=== PATIENT | female | born 1965 | race Caucasian/White ===

== ENCOUNTER 2017-07-08 17:32 | Inpatient (IN) ==
[2017-07-08] MEDS ORDERED: ALBUTEROL/IPRATROPIUM 3 ML NEB RESP TX STA (18:09)
[2017-07-08] MEDS ORDERED: methylPREDNISolone SOD SUC 125 MG/2 ML VIAL IV STA (18:10)
[2017-07-08 18:20] LABS: VBG Base Excess -5.2 MEQ/L (0-4); VBG HCO3 20.5 MEQ/L (24-28); VBG Oxygen Saturation 76.8 %; VBG PCO2 40.6 MMHG (41-51); VBG PH 7.321; VBG PO2 42.1 MMHG (17-40)
[2017-07-08 18:23] LABS: Basophils % 0.2 % (0.0-0.8); Hematocrit 35.6 VOL% (35.7-47.0); Immature Granulocytes % 0.4 %; Immature Granulocytes Absolute 0.04 #; Lymphocytes # 1.8 10*3/uL (1.4-4.0); Mean Corpuscular HGB Conc 33.7 GM/DL (32-36); Mean Corpuscular Hemoglobin 30 PG (27-34); Mean Corpuscular Volume 89.7 FL (87-102); Mean Platelet Volume 9.7 FL (9.6-12.0); Monocytes # 0.2 10*3/uL (0.11-0.8); Monocytes % 2.1 % (1.7-12.7); Neutrophils # 7.2 10*3/uL (1.4-7.4); Neutrophils % 78.3 % (38.7-73.9); Platelet Count 243 T/CUMM (130-400); Red Blood Count 3.97 MC/CUMM (3.8-5.5); Red Cell Distribution Width 12.8 % (9.3-17.3); White Blood Count 9.2 T/CUMM (4-12)
[2017-07-08 18:33] LABS: Alanine Aminotransferase 33 U/L (13-56); Albumin 3.2 G/DL (3.4-5.0); Alkaline Phosphatase 41 U/L (45-117); Aspartate Amino Transferase 29 U/L (0-37); Blood Urea Nitrogen 21 MG/DL (7-18); Calcium 8.1 MG/DL (8.5-10.1); Glucose 94 MG/DL (74-106); Osmolality,Calculated 268.4 MOS/KG (273-304); Potassium 3.5 MMOL/L (3.5-5.1); Sodium 133 MMOL/L (136-145); Total Protein 7.2 G/DL (6.4-8.3); Troponin I Only < 0.015 NG/ML (0.00-0.045)
[2017-07-08] MEDS ORDERED: methylPREDNISolone SOD SUC 125 MG/2 ML VIAL ONE (18:33)
[2017-07-08] MEDS ORDERED: FUROSEMIDE 40 MG/4 ML VIAL IV STA (18:53)
[2017-07-08] MEDS ORDERED: SODIUM CHLORIDE 0.9% 2,250 ML IV ONE (19:10)
[2017-07-08] MEDS ORDERED: CEFEPIME 2,000 MG in SODIUM CHLORIDE 0.9% 100 ML IV STA (19:12)
[2017-07-08] MEDS ORDERED: VANCOMYCIN INJ 1,000 MG in SODIUM CHLORIDE 0.9% 250 ML IV STA (19:12)
[2017-07-08] MEDS ORDERED: FUROSEMIDE 40 MG/4 ML VIAL ONE (19:41)
[2017-07-08 20:26] LABS: Apearance,Urine Slightly Hazy (Clear); Bilirubin,Urine Negative (Negative); Blood, Urine Small mg/dL (Negative); Glucose,Urine (UA) Negative (Negative); Ketones,Urine Negative (Negative); Mucus,Urine Occasional /LPF (Occasional); Nitrite,Urine Negative (Negative); Protein,Urine 30 MG/DL; Urine Color Yellow (Yellow); Urine Specific Gravity 1.018 (1.001-1.035); Urine Urobilinogen < 2.0 EU/DL (0.2-1.0)
[2017-07-08] MEDS ORDERED: NON-FORMULARY MEDICATION (Albuterol Sulfate [Ventolin Hfa] 2 PUFF) INH PRN (20:45)
[2017-07-08] MEDS ORDERED: LEVOFLOXACIN INJ 750 MG in PREMIX 1 EACH IV SCH (21:30)
[2017-07-08] MEDS: OSELTAMIVIR 75 MG CAPSULE PO SCH (21:40)
[2017-07-08] MEDS ORDERED: cefTRIAXone 2,000 MG in SYRINGE 1 EACH IV SCH (23:00)
[2017-07-09] MEDS: ALBUTEROL 2.5 MG/3 ML NEB RESP TX PRN ×2 (00:20→08:04)
[2017-07-09] MEDS: OSELTAMIVIR 75 MG CAPSULE PO SCH ×2 (08:07→21:17)
[2017-07-09] MEDS ORDERED: VANCOMYCIN INJ 1,000 MG in SODIUM CHLORIDE 0.9% 250 ML IV SCH (11:00)
[2017-07-09] MEDS: ALBUTEROL 2.5 MG/3 ML NEB RESP TX SCH ×4 (11:18→23:51)
[2017-07-09] MEDS: PIPERACILLIN/TAZOBACTAM 3,375 MG in SODIUM CHLORIDE 0.9% 100 ML IV SCH ×2 (12:41→21:17)
[2017-07-09] MEDS: BREO ELLIPTA INH SCH (14:58)
[2017-07-09] MEDS ORDERED: FUROSEMIDE 40 MG/4 ML VIAL IV ONE (16:36)
[2017-07-09] MEDS: BUDESONIDE 0.5 MG/2 ML NEB RESP TX SCH (19:18)
[2017-07-10] MEDS: ALBUTEROL 2.5 MG/3 ML NEB RESP TX SCH ×3 (02:38→11:33)
[2017-07-10] MEDS: PIPERACILLIN/TAZOBACTAM 3,375 MG in SODIUM CHLORIDE 0.9% 100 ML IV SCH ×3 (04:18→20:04)
[2017-07-10 04:44] LABS: Basophils # 0.1 10*3/uL (0.0-0.2); Basophils % 0.7 % (0.0-0.8); Eosinophils % 0.1 % (0.00-10.9); Hematocrit 31.1 VOL% (35.7-47.0); Hemoglobin 10.5 GM/DL (12.0-16.0); Immature Granulocytes % 1.2 %; Immature Granulocytes Absolute 0.17 #; Lymphocytes # 1.7 10*3/uL (1.4-4.0); Lymphocytes % 12.2 % (21.3-54.2); Mean Corpuscular HGB Conc 33.8 GM/DL (32-36); Mean Corpuscular Hemoglobin 30 PG (27-34); Mean Corpuscular Volume 90.1 FL (87-102); Mean Platelet Volume 9.8 FL (9.6-12.0); Monocytes # 0.4 10*3/uL (0.11-0.8); Monocytes % 3.1 % (1.7-12.7); Neutrophils # 11.8 10*3/uL (1.4-7.4); Neutrophils % 82.7 % (38.7-73.9); Platelet Count 217 T/CUMM (130-400); Red Blood Count 3.45 MC/CUMM (3.8-5.5); Red Cell Distribution Width 13.1 % (9.3-17.3); White Blood Count 14.3 T/CUMM (4-12)
[2017-07-10 04:52] LABS: Calcium 8.4 MG/DL (8.5-10.1); Magnesium 2.4 MG/DL (1.8-2.4); Osmolality,Calculated 278.7 MOS/KG (273-304); Potassium 3.1 MMOL/L (3.5-5.1)
[2017-07-10 05:16] LABS: Hypochromasia 1+; Microcytosis Slight; Platelet Estimate Adequate
[2017-07-10] MEDS: BUDESONIDE 0.5 MG/2 ML NEB RESP TX SCH ×2 (07:46→19:56)
[2017-07-10] MEDS ORDERED: POTASSIUM CHLORIDE 20 MEQ TABLET PO ONE ×2 (08:21→12:15)
[2017-07-10] MEDS: VANCOMYCIN INJ 1,000 MG in SODIUM CHLORIDE 0.9% 250 ML IV SCH ×2 (09:02→20:39)
[2017-07-10] MEDS: OSELTAMIVIR 75 MG CAPSULE PO SCH ×2 (09:19→20:02)
[2017-07-10] MEDS: BREO ELLIPTA INH SCH (09:21)
[2017-07-10] MEDS ORDERED: ALBUTEROL 1.25 MG/3 ML NEB RESP TX PRN (12:08)
[2017-07-10] MEDS: methylPREDNISolone SOD SUC 40 MG/1 ML VIAL IV SCH ×2 (12:12→20:02)
[2017-07-10 12:22] LABS: ABG Base Excess 1.1 MMOL/L (-2.5-2.5); ABG HCO3 25.3 MMOL/L (20-26); ABG Oxygen Saturation 88.1 % (95-100); ABG PCO2 38.8 MM HG (35-48); ABG PH 7.425 (7.35-7.45); ABG PO2 54.3 MM HG (80-95); ABG TCO2 23.1 MMOL/L (23-27)
[2017-07-10] MEDS: ALBUTEROL/IPRATROPIUM 3 ML NEB RESP TX SCH ×2 (14:06→19:56)
[2017-07-11] MEDS: ALBUTEROL/IPRATROPIUM 3 ML NEB RESP TX SCH ×4 (00:09→20:34)
[2017-07-11] MEDS: PIPERACILLIN/TAZOBACTAM 3,375 MG in SODIUM CHLORIDE 0.9% 100 ML IV SCH ×3 (05:25→20:57)
[2017-07-11] MEDS: methylPREDNISolone SOD SUC 40 MG/1 ML VIAL IV SCH ×3 (05:26→20:54)
[2017-07-11 06:00] LABS: Basophils # 0.1 10*3/uL (0.0-0.2); Basophils % 0.5 % (0.0-0.8); Hematocrit 30.1 VOL% (35.7-47.0); Hemoglobin 10.1 GM/DL (12.0-16.0); Immature Granulocytes % 5.1 %; Immature Granulocytes Absolute 0.84 #; Lymphocytes # 1.2 10*3/uL (1.4-4.0); Lymphocytes % 7.3 % (21.3-54.2); Mean Corpuscular HGB Conc 33.6 GM/DL (32-36); Mean Corpuscular Hemoglobin 30 PG (27-34); Mean Corpuscular Volume 89.6 FL (87-102); Mean Platelet Volume 9.6 FL (9.6-12.0); Monocytes # 0.5 10*3/uL (0.11-0.8); Monocytes % 2.8 % (1.7-12.7); Neutrophils # 13.9 10*3/uL (1.4-7.4); Neutrophils % 84.3 % (38.7-73.9); Platelet Count 247 T/CUMM (130-400); Red Blood Count 3.36 MC/CUMM (3.8-5.5); Red Cell Distribution Width 13.2 % (9.3-17.3); White Blood Count 16.5 T/CUMM (4-12)
[2017-07-11 06:33] LABS: Band Neutrophils 1 % (0-10); Lymphocytes 2 % (20-55); Metamyelocytes 1 %; Segmented Neutrophils 92 % (50-85); Total Cells Counted 100
[2017-07-11 06:36] LABS: Albumin 2.1 G/DL (3.4-5.0); Bilirubin,Total 0.6 MG/DL (0.2-1.0); Calcium 8.2 MG/DL (8.5-10.1); Osmolality,Calculated 280.5 MOS/KG (273-304); Platelet Estimate Adequate; Potassium 3.8 MMOL/L (3.5-5.1); Total Protein 6.3 G/DL (6.4-8.3)
[2017-07-11 06:37] LABS: Hypochromasia Slight
[2017-07-11] MEDS: BUDESONIDE 0.5 MG/2 ML NEB RESP TX SCH ×2 (07:40→20:34)
[2017-07-11] MEDS: OSELTAMIVIR 75 MG CAPSULE PO SCH ×2 (10:29→20:54)
[2017-07-11] MEDS: BREO ELLIPTA INH SCH (10:29)
[2017-07-11] MEDS: VANCOMYCIN INJ 1,000 MG in SODIUM CHLORIDE 0.9% 250 ML IV SCH (10:30)
[2017-07-12] MEDS: ALBUTEROL/IPRATROPIUM 3 ML NEB RESP TX SCH ×4 (00:06→19:05)
[2017-07-12] MEDS: VANCOMYCIN INJ 1,000 MG in SODIUM CHLORIDE 0.9% 250 ML IV SCH ×3 (01:01→22:30)
[2017-07-12] MEDS: methylPREDNISolone SOD SUC 40 MG/1 ML VIAL IV SCH ×3 (04:08→21:54)
[2017-07-12] MEDS: PIPERACILLIN/TAZOBACTAM 3,375 MG in SODIUM CHLORIDE 0.9% 100 ML IV SCH ×3 (04:09→20:26)
[2017-07-12] MEDS: BUDESONIDE 0.5 MG/2 ML NEB RESP TX SCH ×2 (07:19→19:05)
[2017-07-12] MEDS: BREO ELLIPTA INH SCH (10:01)
[2017-07-12] MEDS: OSELTAMIVIR 75 MG CAPSULE PO SCH ×2 (10:01→20:25)
[2017-07-12] MEDS: CHOLECALCIFEROL 1,000 UNIT TABLET PO SCH (10:07)
[2017-07-12 15:35] LABS: Q Fever Phase II IgM <1:16 (<1:16)
[2017-07-13] MEDS: ALBUTEROL/IPRATROPIUM 3 ML NEB RESP TX SCH ×4 (00:42→19:14)
[2017-07-13] MEDS: PIPERACILLIN/TAZOBACTAM 3,375 MG in SODIUM CHLORIDE 0.9% 100 ML IV SCH ×3 (04:33→20:53)
[2017-07-13] MEDS: methylPREDNISolone SOD SUC 40 MG/1 ML VIAL IV SCH (05:19)
[2017-07-13 07:05] LABS: Basophils # 0.1 10*3/uL (0.0-0.2); Basophils % 0.7 % (0.0-0.8); Hematocrit 31.5 VOL% (35.7-47.0); Hemoglobin 10.4 GM/DL (12.0-16.0); Immature Granulocytes % 21.8 %; Immature Granulocytes Absolute 3.55 #; Lymphocytes # 1.5 10*3/uL (1.4-4.0); Lymphocytes % 9.2 % (21.3-54.2); Mean Corpuscular Hemoglobin 30 PG (27-34); Mean Corpuscular Volume 89.5 FL (87-102); Mean Platelet Volume 9.8 FL (9.6-12.0); Monocytes # 1.3 10*3/uL (0.11-0.8); Monocytes % 8.2 % (1.7-12.7); NRBC # 0.03 10*3/uL; Neutrophils # 9.8 10*3/uL (1.4-7.4); Neutrophils % 60.1 % (38.7-73.9); Platelet Count 295 T/CUMM (130-400); Red Blood Count 3.52 MC/CUMM (3.8-5.5); Red Cell Distribution Width 13.4 % (9.3-17.3); White Blood Count 16.3 T/CUMM (4-12)
[2017-07-13] MEDS: BUDESONIDE 0.5 MG/2 ML NEB RESP TX SCH ×2 (07:19→19:17)
[2017-07-13 07:36] LABS: Band Neutrophils 1 % (0-10); Calcium 7.9 MG/DL (8.5-10.1); Lymphocytes 4 % (20-55); Metamyelocytes 5 %; Osmolality,Calculated 285.1 MOS/KG (273-304); Potassium 3.5 MMOL/L (3.5-5.1); Promyelocytes 2 %; Segmented Neutrophils 82 % (50-85); Total Cells Counted 100
[2017-07-13 07:37] LABS: Hypochromasia 1+; Microcytosis Slight; Platelet Estimate Normal
[2017-07-13] MEDS: BREO ELLIPTA INH SCH (09:24)
[2017-07-13] MEDS: CHOLECALCIFEROL 1,000 UNIT TABLET PO SCH (09:24)
[2017-07-13] MEDS: OSELTAMIVIR 75 MG CAPSULE PO SCH (09:24)
[2017-07-13] MEDS: VANCOMYCIN INJ 1,000 MG in SODIUM CHLORIDE 0.9% 250 ML IV SCH (10:26)
[2017-07-13] MEDS ORDERED: methylPREDNISolone SOD SUC 40 MG/1 ML VIAL IV SCH (21:00)
[2017-07-14] MEDS: ALBUTEROL/IPRATROPIUM 3 ML NEB RESP TX SCH ×4 (01:31→20:04)
[2017-07-14 02:42] LABS: Basophils # 0.1 10*3/uL (0.0-0.2); Basophils % 0.4 % (0.0-0.8); Hematocrit 30.8 VOL% (35.7-47.0); Hemoglobin 10.2 GM/DL (12.0-16.0); Immature Granulocytes % 20.6 %; Immature Granulocytes Absolute 3.69 #; Mean Corpuscular HGB Conc 33.1 GM/DL (32-36); Mean Corpuscular Hemoglobin 30 PG (27-34); Mean Corpuscular Volume 89.3 FL (87-102); Mean Platelet Volume 9.3 FL (9.6-12.0); Monocytes # 1.2 10*3/uL (0.11-0.8); Monocytes % 6.8 % (1.7-12.7); NRBC # 0.05 10*3/uL; Neutrophils # 10.9 10*3/uL (1.4-7.4); Neutrophils % 61.2 % (38.7-73.9); Platelet Count 339 T/CUMM (130-400); Red Blood Count 3.45 MC/CUMM (3.8-5.5); Red Cell Distribution Width 13.3 % (9.3-17.3); White Blood Count 17.9 T/CUMM (4-12)
[2017-07-14 03:10] LABS: Calcium 8.1 MG/DL (8.5-10.1); Osmolality,Calculated 282.3 MOS/KG (273-304); Potassium 3.4 MMOL/L (3.5-5.1)
[2017-07-14] MEDS: PIPERACILLIN/TAZOBACTAM 3,375 MG in SODIUM CHLORIDE 0.9% 100 ML IV SCH ×3 (04:33→21:11)
[2017-07-14 06:00] LABS: Band Neutrophils 2 % (0-10); Hypochromasia 2+; Lymphocytes 13 % (20-55); Metamyelocytes 5 %; Nucleated Red Blood Cells 1 (0-5); Platelet Estimate Normal; Segmented Neutrophils 72 % (50-85); Total Cells Counted 100
[2017-07-14] MEDS: BUDESONIDE 0.5 MG/2 ML NEB RESP TX SCH ×2 (07:08→20:04)
[2017-07-14] MEDS: BREO ELLIPTA INH SCH (09:12)
[2017-07-14] MEDS: CHOLECALCIFEROL 1,000 UNIT TABLET PO SCH (09:12)
[2017-07-14] MEDS: methylPREDNISolone SOD SUC 40 MG/1 ML VIAL IV SCH (21:09)
[2017-07-15] MEDS: ALBUTEROL/IPRATROPIUM 3 ML NEB RESP TX SCH ×4 (01:49→19:21)
[2017-07-15] MEDS: PIPERACILLIN/TAZOBACTAM 3,375 MG in SODIUM CHLORIDE 0.9% 100 ML IV SCH ×3 (04:41→20:50)
[2017-07-15 05:44] LABS: Basophils # 0.1 10*3/uL (0.0-0.2); Basophils % 0.4 % (0.0-0.8); Eosinophils % 0.1 % (0.00-10.9); Hematocrit 31.1 VOL% (35.7-47.0); Hemoglobin 10.4 GM/DL (12.0-16.0); Immature Granulocytes % 18.6 %; Immature Granulocytes Absolute 3.05 #; Lymphocytes # 1.9 10*3/uL (1.4-4.0); Lymphocytes % 11.6 % (21.3-54.2); Mean Corpuscular HGB Conc 33.4 GM/DL (32-36); Mean Corpuscular Hemoglobin 30 PG (27-34); Mean Corpuscular Volume 90.1 FL (87-102); Mean Platelet Volume 9.5 FL (9.6-12.0); Monocytes # 0.6 10*3/uL (0.11-0.8); Monocytes % 3.8 % (1.7-12.7); NRBC # 0.02 10*3/uL; Neutrophils # 10.7 10*3/uL (1.4-7.4); Neutrophils % 65.5 % (38.7-73.9); Platelet Count 372 T/CUMM (130-400); Red Blood Count 3.45 MC/CUMM (3.8-5.5); Red Cell Distribution Width 13.5 % (9.3-17.3); White Blood Count 16.4 T/CUMM (4-12)
[2017-07-15 06:14] LABS: Calcium 7.6 MG/DL (8.5-10.1); Osmolality,Calculated 280.4 MOS/KG (273-304); Potassium 3.6 MMOL/L (3.5-5.1)
[2017-07-15 06:41] LABS: Band Neutrophils 6 % (0-10); Lymphocytes 6 % (20-55); Myelocytes 4 %; Segmented Neutrophils 83 % (50-85); Total Cells Counted 100
[2017-07-15 06:43] LABS: Hypochromasia 1+; Platelet Estimate Normal; Polychromasia Few
[2017-07-15] MEDS: BUDESONIDE 0.5 MG/2 ML NEB RESP TX SCH ×2 (07:10→19:21)
[2017-07-15] MEDS: CHOLECALCIFEROL 1,000 UNIT TABLET PO SCH (09:17)
[2017-07-15] MEDS: BREO ELLIPTA INH SCH (09:18)
[2017-07-15] MEDS: methylPREDNISolone SOD SUC 40 MG/1 ML VIAL IV SCH (20:48)
[2017-07-16] MEDS: ALBUTEROL/IPRATROPIUM 3 ML NEB RESP TX SCH ×4 (00:10→20:27)
[2017-07-16] MEDS: PIPERACILLIN/TAZOBACTAM 3,375 MG in SODIUM CHLORIDE 0.9% 100 ML IV SCH ×3 (04:43→20:56)
[2017-07-16 06:01] LABS: Basophils % 0.2 % (0.0-0.8); Hematocrit 30.1 VOL% (35.7-47.0); Immature Granulocytes Absolute 1.92 #; Lymphocytes # 1.6 10*3/uL (1.4-4.0); Lymphocytes % 9.8 % (21.3-54.2); Mean Corpuscular HGB Conc 33.2 GM/DL (32-36); Mean Corpuscular Hemoglobin 30 PG (27-34); Mean Corpuscular Volume 90.1 FL (87-102); Mean Platelet Volume 9.4 FL (9.6-12.0); Monocytes # 0.4 10*3/uL (0.11-0.8); Monocytes % 2.6 % (1.7-12.7); Neutrophils # 12.1 10*3/uL (1.4-7.4); Neutrophils % 75.4 % (38.7-73.9); Platelet Count 404 T/CUMM (130-400); Red Blood Count 3.34 MC/CUMM (3.8-5.5); Red Cell Distribution Width 13.9 % (9.3-17.3); White Blood Count 16.1 T/CUMM (4-12)
[2017-07-16 06:37] LABS: Osmolality,Calculated 283.3 MOS/KG (273-304); Potassium 3.6 MMOL/L (3.5-5.1)
[2017-07-16 06:41] LABS: Band Neutrophils 5 % (0-10); Lymphocytes 10 % (20-55); Metamyelocytes 2 %; Myelocytes 1 %; Platelet Estimate Increased; Segmented Neutrophils 80 % (50-85); Total Cells Counted 100
[2017-07-16 06:42] LABS: Polychromasia Few
[2017-07-16] MEDS: BUDESONIDE 0.5 MG/2 ML NEB RESP TX SCH ×2 (07:24→20:27)
[2017-07-16] MEDS: CHOLECALCIFEROL 1,000 UNIT TABLET PO SCH (08:47)
[2017-07-16] MEDS: BREO ELLIPTA INH SCH (08:47)
[2017-07-16] MEDS: methylPREDNISolone SOD SUC 40 MG/1 ML VIAL IV SCH (20:54)
[2017-07-17] MEDS: ALBUTEROL/IPRATROPIUM 3 ML NEB RESP TX SCH ×2 (00:57→06:52)
[2017-07-17] MEDS: PIPERACILLIN/TAZOBACTAM 3,375 MG in SODIUM CHLORIDE 0.9% 100 ML IV SCH (04:51)
[2017-07-17 06:21] LABS: Basophils % 0.2 % (0.0-0.8); Eosinophils % 0.1 % (0.00-10.9); Hematocrit 32.8 VOL% (35.7-47.0); Hemoglobin 10.5 GM/DL (12.0-16.0); Immature Granulocytes % 6.9 %; Immature Granulocytes Absolute 1.01 #; Lymphocytes # 1.6 10*3/uL (1.4-4.0); Lymphocytes % 10.7 % (21.3-54.2); Mean Corpuscular Hemoglobin 30 PG (27-34); Mean Corpuscular Volume 92.1 FL (87-102); Mean Platelet Volume 9.2 FL (9.6-12.0); Monocytes # 0.3 10*3/uL (0.11-0.8); Monocytes % 2.1 % (1.7-12.7); Neutrophils # 11.8 10*3/uL (1.4-7.4); Platelet Count 446 T/CUMM (130-400); Red Blood Count 3.56 MC/CUMM (3.8-5.5); White Blood Count 14.7 T/CUMM (4-12)
[2017-07-17 06:45] LABS: Band Neutrophils 2 % (0-10); Hypochromasia 1+; Lymphocytes 6 % (20-55); Metamyelocytes 3 %; Segmented Neutrophils 85 % (50-85); Total Cells Counted 100
[2017-07-17 06:46] LABS: Platelet Estimate Increased
[2017-07-17] MEDS: BUDESONIDE 0.5 MG/2 ML NEB RESP TX SCH (06:53)
[2017-07-17 06:58] LABS: Osmolality,Calculated 285.1 MOS/KG (273-304); Potassium 3.8 MMOL/L (3.5-5.1)
[2017-07-17] MEDS: CHOLECALCIFEROL 1,000 UNIT TABLET PO SCH (08:45)
[2017-07-17] MEDS ORDERED: predniSONE 20 MG TABLET PO SCH (09:00)
[2017-07-17 11:56] VITALS: BP 135/65
[2017-07-17] MEDS ORDERED: AMOXICILLIN/CLAV 500 MG TABLET PO SCH (15:00)
== END 2017-07-17 13:20 | disposition home or self-care (01) | DRG 871 ==
LOC: N.ED 17:32 → N.EDINP 19:01 → SUATTDRO 19:01 → N.ICU 20:40 → N.2E 07-11 14:32
PROVIDERS: ADMIT Internal Medicine; ATTEND Hospitalist